=== PATIENT | male | born 2000 | race Caucasian/White ===

== ENCOUNTER 2025-04-05 16:01 | Emergency (ER) | payer SELFPAY ==
--- OUTSIDE RECORDS SUMMARY | 2025-04-05 16:13 | XMS_ITS | Data Portability ---
Author Organization [facility], [address] Address [address] [place] [address] Care Team Providers Care Program Lead Name Role Phone [facility] Care Provider Assessment No assessment recorded. Plan of Treatment Reminders Order Date Submit Date Provider Last Modified By Organization Details Last Modified Time Details Appointments None recorded. Lab SARS CoV 2 (COVID-19) Ag, QL, [place], upper respiratory specimen 2023 024 [employer] [address], [address] [place], [address], 13:31:06 rapid strep group A, throat 2023 0[address], [address] [place], [address], 13:31:07 rapid flu (A+B) 2023 024 [email or web address] [address], [address] [place], [address], 13:31:08 rapid flu (A+B) 2023 024 [employer] [address], [address] [place], [address], 13:15:27 SARS CoV 2 (COVID-19) Ag, QL, IA, upper respiratory specimen 2023 024 [email or web address] 2099Christal_garcia [facility], [address] [place], [place] [address], [address], 13:15:28 Referral None recorded. Procedures None recorded. Surgeries None recorded. Imaging None recorded. Medication Orders amoxicillin 875 mg tablet 2023 024 [id number], [address] [place], [address], 13:31:08 Patient TargetsNo targets recorded. Patient InstructionsNo instructions recorded. Reason for Referral None Reported. Results Created Date Observation Date Name Description Value Unit Range Abnormal Flag Note LastModifiedBy Organization Detail LastModifiedTime 07/13/1907/13/2023 SARS CoV 2 (COVI D-19) Ag, QL, IA, upper respi rator y speci men Unknown Analyte negati ve Not Available pato [address] [place], [address], 07/13/2023 12:46:04 07/13/19 24 07/13/2023 SARS CoV 2 (COVI D-19) Ag, QL, IA, upper respi rator y speci men Unknown Analyte yes Not Available 2099Christal garcia [address] [place], [address], 07/13/2023 12:46:04 07/13/19 24 07/13/2023 rapid flu (A+B) Unknown Analyte negati ve Not Available [facility] [address] [place], [address], 07/13/2023 12:45:36 07/13/19 24 07/13/2023 rapid flu (A+B) Unknown Analyte negati ve Not Available 2099pato [address] [place], [address], 07/13/2023 12:45:36 07/13/19 24 07/13/2023 rapid flu (A+B) Unknown Analyte yes Not Available [address] [place] [address] [place], [address], 07/13/2023 12:45:36 01/14/20 24 01/14/2024 rapid flu (A+B) Unknown Analyte negati ve Not Available [address] [place] [address] [place], [address], 01/14/2024 13:12:11 01/14/2001/14/2024 rapid flu (A+B) Unknown Analyte negati ve Not Available [address] [place], [place] [address], [address], 01/14/2024 13:12:11 01/14/20 24 01/14/2024 rapid strep group A, throa t Unknown Analyte positi ve Not Available [address] [place], [place] [address], [address], 01/14/2024 13:10:21 01/14/20 24 01/14/2024 rapid strep group A, throa t Unknown Analyte yes Not Available [address] [place], [place] [address], [address], 01/14/2024 13:10:21 01/14/20 24 01/14/2024 SARS CoV 2 (COVI D-19) Ag, QL, IA, upper respi rator y speci men Unknown Analyte negati ve Not Available [address] [place], [place] [address], [address], 01/14/2024 13:10:17 01/14/20 24 01/14/2024 SARS CoV 2 (COVI D-19) Ag, QL, IA, upper respi rator y speci men Unknown Analyte yes Not Available [address] [place], [place] [address] [address] [place] [address], [address], 01/14/2024 13:10:17 Result Notes None recorded. Problems Name Problem SNOMED Code Status Onset Date Resolution Date Notes Provider Name and Address Organization Details Recorded Time Fever 738020751 Active 024 ROSELINE robin, PA - [facility] 4 12:45:41 Viral syndrome 050110645 Active 024 Laura Medeiros, ISAC [address] [facility] [place], [address] , [place] - [facility] 4 13:14:21 Problem Notes None recorded. Medical Equipment None Reported. Allergies Allergen ID Allergen Name Allergen Category Reaction Reaction Severity Criticality Documentation Date Start Date Code Code System Note Provider Name and Address Organization Details Recorded Time 775267 Tobradex medicatio n swelling Not available Not available 07/13/2023 28123 0 RxNorm ROSELINE robin, PA - [facility] 4 12:42:28 Medications Name Sig Start Date Stop Date Status Note LastModified by Organization Details LastModified Time tretinoin 0.025 % topical cream APPLY A SMALL AMOUNT AT BEDTIME active Not Available Not Available No t Available sulfamethox azole 800 mg-trimetho prim 160 mg tablet TAKE 1 TABLET BY MOUTH TWICE A DAY FOR 10 DAYS 07/12 completed Not Available Not Available Not Available amoxicillin 875 mg tablet Take 1 tablet every 12 hours by oral route for 10 days. 2023 active Not Available Not Available Not Avai lable scopolamine 1 mg over [address] PATCH ONTO THE SKIN EVERY 72 HOURS NEEDED FOR OTHER (MOTION SICKNESS) . active Not Available Not Available No t Available clindamycin 1 % lotion APPLY TO AFFECTED AREA EVERY MORNING active Not Available Not Available No t Available Amber Allergy 180 mg tablet Take 1 tablet every day by oral route. active Not Available Not Available No t Available Vitals Date Recorded Body height Body mass index (BMI) Body weight Pain severity - 0-10 verbal numeric rating [Score] - Reported Respiratory rate Body temperature Oxygen saturation Heart rate Systolic And Diastolic Provider Name and Address Organization Details Last Updated DateTime 4 177.8 cm 18.7 kg/m2 22182.0 1 g 4 18 /min 97.5 [degF] 96 % 64 /min 107/74 mm[Hg] ROSELINE MARTINEZ PA - [facility] 4 12:48:08 Date Recorded Body height Body mass index (BMI) Body weight Pain severity - 0-10 verbal numeric rating [Score] - Reported Oxygen saturation Heart rate Respiratory rate Body temperature Systolic And Diastolic Provider Name and Address Organization Details Last Updated DateTime 4 177.8 cm 18.7 kg/m2 78424.0 1 g 0 99 % 71 /min 17 /min 99 [degF] 96/68 mm[Hg] Alma Jeronimo PA - [facility] 4 13:11:33 Social History Question Answer Notes LastModified by Organizat ion Details LastModified Time Tobacco Smoking Status Never Smoker ROSELINE MARTINEZ lobito PA - [facility] 07/13/2023 12:44:33 Have You Had A Flu Shot This Season? No Information not available 01/14/2024 If No, Would You Like A Flu Shot Today? No Information not available 01/14/2024 Have You Recently Traveled Abroad? No [email or web address] Information not available 07/13/2023 Sex: Unknown Functional Status Question Answer Note LastModified by Organizat ion Details LastModified Time Do you use any illicit or recreational drugs? No Information not available 07/13/2023 Do you or have you ever used any other forms of tobacco or nicotine? No [email or web address] Information not available 07/13/2023 What is your level of alcohol consumption? None [email or web address] Information not available 07/13/2023 Mental Status None recorded. Family History Relationship Description Onset Age of this Age Resolved Age Notes LastModified by Organization Details LastModified Time Father Heart disease [email or web address] Not available 2023 12:44:13 Medical History No medical history recorded. Past Encounters Encounter ID Performer Location Encounter Start Date Encounter Closed Date Diagnosis/Indication Diagnosis SNOMED-CT Code Diagnosis ICD10 Code Diagnosis IMO Codes Diagnosis Note [id number] [facility] [place] [address] 05/29/2015 17:48:27 05/29/2015 19:46:15 [id number] [address] [place] [address] 12/02/2018 17:48:17 12/02/2018 18:22:05 [id number] [address] [place] [address] 05/08/2015 17:47:33 05/08/2015 18:17:35 [id number] [address] [place] [address] 09/12/2018 17:54:47 09/12/2018 18:37:49 [id number] [address] [place] [address] 10/16/2021 10:58:51 10/16/2021 11:45:27 [id number] [address] [place] [address] 03/26/2019 17:09:14 03/26/2019 17:54:06 [id number] [place] [address] [email or web address]][address] [place] [address] 07/13/2023 12:25:04 07/13/2023 13:27:17 Viral syndrome 399221123 B34.9 Based on your Presentati on and Exam you are being diagnosed with a viral upper respirator y track infection Your rapid Flu and SARS-cov tests were negative your condition is caused by a virus that can be highly contagious . If you have any family member that have been exposed they typically will start to show symptoms in 48-72 hours. You are considered contagious for 5 Days after the start of the fever. You should isolate and not go to work, sports, events during this quarantine period. The following are my recommenda tions to help with your symptoms while your body fights this infection: 1. Take Ibuprofen or Tylenol if you do not have any allergies to these medication s. If you take a blood thinner you should not take NSAIDS like Ibuprofen. These medication will help with the inflammati on in your respirator y tract which should help the cough.2. Do not take any decongesta nts at this time because this will dry out that tract too much. If you have a lot of nasal congestion you can try nasal decongesta nts, but I would not take them more than 5 days.3. Use a humidifier or add a cup of water by your bed. Sometimes if our sleeping environmen t is too dry this can lead to cough4. Salt Water Gargles5. Saline nasal spray is helpful.6. Would recommend taking a antihistam ine to help with the congestion .7. Clean Surfaces regularly and try to stay isolated from family members. I would be seen again if you develop any of the following. 1. Cough develops last longer than 3 weeks.2. Develop shortness of breath or wheezing.3 . Severe Headache with vision changes4. Stiff Neck5. Fever does not reduce a few points with Ibuprofen or Tylenol. I would go immediatel y to the Emergency Room if you develop:1. Chest Pain2. Severe Shortness of breath3. Coughing up Blood. [id number] [place] [address] [place] [phone] 01/14/2024 12:58:27 01/14/2024 13:32:46 Streptococcal sore throat 09682490 J02.0 Based on your Presentati on, Exam, and Lab Testing you are being diagnosed with strep Pharyngiti s. Your Rapid Strep Test was positive I am going to prescribe you and antibiotic to cover this infection. Please be sure to complete the full course of this antibiotic to prevent antibiotic resistance . It is also important to complete this antibiotic because this infection is what causes Scarlet Fever/Rheu matic Heart Disease. Antibiotic s will typically take 4-5 days to start to work with symptom improvemen t. The following are my other recommenda tions to help with symptoms and is important for this diagnosis: 1. Do not share any food or drinks - strep is passed through direct saliva exchange (NOT IN THE AIR)2. Change your toothbrush in 3-4 days so that you don't re-infect yourself after you complete the antibiotic .3. Take Ibuprofen or Tylenol if you do not have any allergies to these medication s. If you take a blood thinner you should not take NSAIDS like Ibuprofen. These medication will help with the inflammati on in your respirator y tract which should help the cough. (I would alternate between Tylenol 650 mg and your Ibuprofen 600 mg every 4 hours)4. Do not take any Cold Medication s that have a Decongesta nt in it - this will dry out your throat and make the sore throat worse.5. Drinking Hot Tea with honey can help coat and soothe your throat.6. You would be considered contagious for the next 24-48 hours, or until fever resolves. I would be seen again if you develop any of the following symptoms.1 . Fever > 101.02. Stiff neck - where you can't turn your neck3. Trouble swallowing your saliva - drooling4. Swelling of a lymph node in your throat that is painful to touch5. Difficulty breathing6 . Severe Headache Thank you for using [facility] today, please feel free to contact our office if you have any questions or concerns. Health Concerns Section Related Observation LastModified by Organization Detai ls LastModified Time None Recorded Concern Status LastModified by Organization Details LastModified Time None Recorded Advance Directives Directive None Recorded Payers Insurance Date Sequence Insurance Name Policy Number Policy Bach Covered Member ID Bach Member ID Guarantor Name 01/14/2024 1 [facility] [id number] Reji Saucedo [id number] Reji Saucedo Notes Date Note Type Note Provider Name and Address Organization Details Recorded Time 4 text/html Sinus Complaints UCReported by PatientHPIFor location, patient reportspain behind the eyes __,sinus pain,facial pain,pain in the cheek, andsinus pressurebut reportsleft sideandright side. For associated symptoms, patient reportsnasal discharge from __ nostrils,fever/chills,post nasal drip,ear fullness, andcough. For quality, patient reportsworsening. For alleviating factors, patient reportsnothing gives relief. For onset/timing, patient reportsworse in pm. For severity, patient reportssevere. For context, patient reportsno recent upper respiratory infection. For risk factors, patient reportsno current smoking or tobacco use. FeverReported by Patient s/s: runny nose, sore throat, fever (102) yesterday, body aches, no appetite, h/a x2 days--pt states that he feels like he has the flu Laura Medeiros NP [address] [place], [address], PA - [facility] 07/13/2023 13:17:58 4 text/html Sore throatReported by PatientSore ThroatFor associated symptoms, patient reportssore throatandfeverbut reportsno cough,no sputum production,no shortness of breath,no wheezing,no sinus pain,no vomiting,no nausea, andno hoarseness. For context, patient reportssick contactbut reportsno foreign travelandnon-smoker. For modifying factors, patient reportsexposed to strep non householdbut reportsotc medication no relief*. For source of patient information, patient reportsinformation obtained from patientandpatient arrived at urgent care ambulatory. For location, patient reportsthroat. For severity, patient reportsmoderate. For quality, patient reportsburningandhurts to swallow. For onset/timing, patient reports___ days. sore throat, started sunday night, chest pains/congestion , headache. Laura Medeiros NP [address] [place], [address], [place] - [facility] 01/16/2024 16:02:43
--- OUTSIDE RECORDS SUMMARY | 2025-04-05 16:13 | XMS_ITS | Clinical Summary ---
Author Organization [facility] Address [address] [address] Phone Care Team Providers Care Sewage Disposal Engineer Name Role Phone Pcp, Unknown Primary Care Provider Unavailabl e Allergies Active Allergy Reactions Criticality Noted Date Comments Other 05/13/2023 Tobrix eye drops Medications No known medications Social History Tobacco Use Types Packs/Day Years Used Date Smoking Tobacco: Never Assessed Education Answer Date Recorded Are you interested in more education? Not on maryellen e 05/13/2023 Are you concerned about learning? Not on file 05/13/2023 No 05/13/2023 No 05/13/2023 Digital Access Answer Date Recorded No 05/13/2023 No 05/13/2023 Reliable internet access at home? Not on file 05/13/2023 Device with a working camera? Not on file Intimate Partner Violence Answer Date R ecorded Are you denied basic needs s uch as food, clothing, or medical care? No 05/13/2023 In the past 12 months have y ou been in a relationship with a person who hurts, threatens, or tries to control you? No 05/13/2023 Are you denied basic needs s uch as food, clothing, or medical care? No 05/13/2023 In the past 12 months have y ou been in a relationship with a person who hurts, threatens, or tries to control you? No 05/13/2023 Sex and Gender Information Value Date Recorded Sex Assigned at Not on file Legal Sex Male 5:05 PM EST Gender Identity Not on file Sexual Orientation Not on file Last Filed Vital Signs Vital Sign Reading Time Taken Comments Blood Pressure 110/68 05/13/2023 9:43 PM EST Pulse 70 05/13/2023 9:43 PM EST Temperature 36.9 C (98.4 F) 05/13/2023 9:43 PM EST Respiratory Rate 16 05/13/2023 9:43 PM EST Oxygen Saturation 98% 05/13/2023 9:43 PM EST Inhaled Oxygen Concentration - - Weight 61.2 kg (135 lb) 05/13/2023 5:22 PM EST Height 177.8 cm (5' 10 ) 05/13/2023 5:22 PM EST Body Mass Index 19.37 05/13/2023 5:22 PM EST Plan of Treatment Health Maintenance Due Date Last Done Comments DEPRESSION SCREENING 2013 SMOKING Hx and SMOKELESS TOB ACCO SCREENING 2014 HPV VACCINES (1 - Male 3-dos e series) 2016 MENINGOCOCCAL VACCINES (B) ( 1 of 2 - Standard) 2017 HEPATITIS C SCREENING 09/20/2019 HIV ONE-TIME SCREENING (18-6 5 YEARS) 09/20/2019 Adult Td,Tdap Booster 03/11/2023 03/11/2013 INFLUENZA VACCINE (#1) 2024 COVID-19 VACCINE (1 - 2024-2 6 season) 2024 HIB VACCINES Completed 12/22/2002 HEPATITIS A VACCINES Aged Out No long er eligible based on patient's age to complete this topic MENINGOCOCCAL VACCINES (ACWY) Aged Out No longer eligible based on patient's age to complete this topic PNEUMOCOCCAL VACCINES (0-49 years) Aged Out No longer eligible based on patient's age to complete this topic Medical Devices Not on file Insurance [facility] [address] [place] [place] [address] [place] [address] [address] [place] [address] Care Teams Sewage Disposal Engineer Relationship Specialty Start Date End Date Pcp, Unknown PCP - General 05/13/23 Additional Source Comments The information contained in this document represents components of the legal health record. It is not the complete legal health record.[facility]
--- OUTSIDE RECORDS SUMMARY | 2025-04-05 16:13 | XMS_ITS ---
Author Name [facility] Organization Unknown Care Team Organization Name Specialty Phone Email Start Date End Da te [facility] 08/14/2022
== END 2025-04-05 16:20 | disposition left against medical advice (07) ==
LOC: HO.ED 16:12
PROVIDERS: Emergency Provider Emergency Medicine
DX: R42 Dizziness and giddiness (principal); Z53.21 Procedure and treatment not carried out due to patient leaving prior to being seen by health care provider